=== PATIENT | male | born 1985 ===

== ENCOUNTER 2022-07-12 12:04 | Emergency (ER) | payer OTHER ==
[~2022-07-12 12:04] MED LIST: Iopamidol 370 76% 100 ML VIAL ONE
[2022-07-12 13:01] LABS: Hemoglobin 14.9 g/dL (14.0-18.0); Mean Corpuscular HGB CONC 33.8 g/dL (32.0-36.0); Mean Corpuscular Hemoglobin 29.8 pg (27.0-31.0); Mean Platelet Volume 9.4 fL (7.4-10.4); Platelet Count 239 10x3/uL (130-400); RBC Distribution Width 10.8 % (11.5-14.5); White Blood Cell (WBC) Count 3.8 10x3/uL (4.8-10.8)
[2022-07-12] MEDS ORDERED: Sodium Chloride 0.9% 1,000 ML ONE (13:05)
[2022-07-12 13:14] LABS: Anion Gap 15 mmol/L (10-20); BUN (Urea Nitrogen) 8 mg/dL (8.9-20.6); Calc. Creatinine Clearance 0 mL/min (70-130); Carbon Dioxide 22 mmol/L (22-29); Chloride 106 mmol/L (98-107); Potassium 4.1 mmol/L (3.5-5.1); Sodium 139 mmol/L (136-145)
[2022-07-12 13:15] LABS: ALT (SGPT) 514 U/L (8-55); AST (SGOT) 300 U/L (5-34); Acetaminophen Less than 10.0 mcg/mL (10.0-30.0); Albumin 4.3 g/dL (3.5-5.0); Alcohol Less than 10 mg/dL (Less than 10); Alkaline Phosphatase 122 U/L (40-110); Bilirubin, Total 0.7 mg/dL (0.2-1.2); Calcium 9.5 mg/dL (7.8-10.44); Estimated GFR 95; Globulin 2.7 g/dL (2.4-3.5); Glucose 179 mg/dL (70-105); Lipase 25 U/L (8-78); Magnesium 1.9 mg/dL (1.6-2.6); Salicylate Less than 8.0 mg/dL (15.0-30.0)
[2022-07-12 13:17] LABS: MDiff Complete? YES; Manual Diff?? YES; Neutrophil 45 % (42-75)
[2022-07-12 13:18] LABS: Anisocytosis SLIGHT = 6-15 cells (100X) (0-5/hpf); Band 3 % (5-11); Eosinophils 9 % (0-10); Lymphocytes 38 % (21-51); Monocytes 3 % (0-10); Platelet Morphology Comment Appears Adequate
[2022-07-12 13:53] LABS: Bilirubin Negative (Negative); Blood, Urine Negative (Negative); Clarity Clear (Clear); Glucose, Urine (Dipstick) Negative (Negative); Ketone, Urine Negative (Negative); Leukocyte Negative (Negative); Nitrite Negative (Negative); Protein, Urine (Dipstick) Negative (Neg-Trace); Urobilinogen 0.2 mg/dL (Less than 2)
[2022-07-12 14:01] LABS: Amphetamine Not Detected (NotDetected); Barbiturates Screen Not Detected (NotDetected); Benzodiazepine Screen Not Detected (NotDetected); Cocaine Metabolite Screen Not Detected (NotDetected); Medtox Control Line Valid? VALID (VALID); Methadone Not Detected (NotDetected); Methamphetamine Not Detected (NotDetected); Opiate Screen Not Detected (NotDetected); Oxycodone Screen Not Detected (NotDetected); Phencyclidine (PCP) Not Detected (NotDetected); THC/Cannabinoid Screen Not Detected (NotDetected); Tricyclic Screen Not Detected (NotDetected)
[2022-07-12 15:01] LABS: SARS-CoV-2 NAA Rapid Test Not Detected (NotDetected)
[2022-07-12] MEDS ORDERED: Piperacillin/Tazobactam 4.5 GM VIAL ONE (15:03)
[2022-07-12] MEDS ORDERED: Sodium Chloride 0.9% 100 ML ONE (15:03)
== END 2022-07-12 17:06 | disposition short-term general hospital (02) ==
LOC: MADERS 12:04
DX: K80.20 Calculus of gallbladder without cholecystitis without obstruction (principal); R74.01 Elevation of levels of liver transaminase levels; F17.210 Nicotine dependence, cigarettes, uncomplicated; I10 Essential (primary) hypertension; Z79.899 Other long term (current) drug therapy
CPT/HCPCS: 36416; 71045; 74177; 80053; 80306; 80307; 81003; 83690; 83735; 84484; 85025; 87086; 93005; 96365; J2543; J3490; J7050; Q9967; U0002